=== PATIENT | female | born 1950 | race African-American/Black ===

== ENCOUNTER 2016-11-19 11:42 | Emergency (ER) | payer OTHER ==
[~2016-11-19] VITALS: Ht 160 cm; Wt 50.0 kg
[~2016-11-19 11:42] MED LIST: ASPIRIN EC325 MG PO; CELEXA10 MG PO; CITALOPRAM HBR10 MG PO; FERROUS SULFAT325 MG PO; Feosol PO; PANTOPRAZOLE SO40 MG PO; Protonix PO
[2016-11-19 11:47] VITALS: BP 139/86
[2016-11-19 12:54] LABS: MCH 24.5 PG (29.0-34.0); MCHC 30.9 G/DL (30.0-36.0); MCV 79.1 FL (83-99); MEAN PLAT.VOLUME 9.7 uM^3 (9.5-12.4); PLATELET COUNT 266 K/uL (156-360); RBC DIS.WIDTH-SD 54.9 % (39-53); RED BLOOD COUNT 4.17 M/uL (3.80-5.20); WHITE BLOOD COUNT 5.6 K/uL (4.1-10.2)
[2016-11-19 13:03] LABS: INFLUENZA A VIRAL ANTIGEN NEGATIVE; INFLUENZA B VIRAL ANTIGEN NEGATIVE
[2016-11-19 13:15] LABS: CHLORIDE 108 mEq/L (99-109); POTASSIUM 3.8 mEq/L (3.7-5.4); SODIUM 142 mEq/L (136-147)
[2016-11-19 13:17] LABS: GLUCOSE 139 mg/dL (70-99)
[2016-11-19 13:18] LABS: ANION GAP 12 MEQ/L (2-14)
[2016-11-19 13:21] LABS: GFR ESTIMATE (CALCULATED) > 59 mL/min/
[2016-11-19 13:22] LABS: UREA NITROGEN (BUN) 13 mg/dL (9-23)
[2016-11-19 13:57] LABS: DELETE MACHINE DIFF? YES
[2016-11-19 13:58] LABS: ABS NEUTROPHIL COUNT 3.72; ANISOCYTOSIS 2+; EOSINOPHIL ABS CT 0.11; HELMET CELLS OCC; HYPOCHROMASIA 2+; MACROCYTES 1+; MICROCYTOSIS OCC; OVALOCYTES OCC; PLAT.SUFFICIENCY ADEQUATE; TEAR DROP CELLS OCC; USER ID TLW
[2016-11-19] MEDS ORDERED: ZITHROMAX Z-PA250 MG PO (14:08)
[2016-11-19] MEDS ORDERED: PROAIR HFA8.5 GM IH (14:08)
== END 2016-11-19 14:45 | disposition home or self-care (01) ==
LOC: EME 11:42
PROVIDERS: Emergency Medicine
DX: J20.9 Acute bronchitis, unspecified (principal); R06.2 Wheezing; Z87.891 Personal history of nicotine dependence
CPT/HCPCS: 71020; 80048; 85025; 87502; 87651 90; 94640; 99281; 99284

== ENCOUNTER 2017-06-01 18:33 | Emergency (ER) | payer OTHER ==
[~2017-06-01] VITALS: Ht 170.2 cm; Wt 51.9 kg
[~2017-06-01 18:33] MED LIST changes: +PROAIR HFA8.5 GM IH; +ZITHROMAX Z-PA250 MG PO
[2017-06-01 18:44] VITALS: BP 168/90
[2017-06-01 19:46] LABS: HEMATOCRIT 32.4 % (36.0-46.0); MCH 21.4 PG (29.0-34.0); MCHC 28.7 G/DL (30.0-36.0); MCV 74.7 FL (83-99); MEAN PLAT.VOLUME 9.5 uM^3 (9.5-12.4); PLATELET COUNT 276 K/uL (156-360); RBC DIS.WIDTH-CV 18.5 % (11.8-14.6); RBC DIS.WIDTH-SD 49.2 % (39-53); RED BLOOD COUNT 4.34 M/uL (3.80-5.20); WHITE BLOOD COUNT 5.4 K/uL (4.1-10.2)
[2017-06-01 19:50] LABS: CHLORIDE 105 mEq/L (99-109); POTASSIUM 4.1 mEq/L (3.7-5.4); SODIUM 138 mEq/L (136-147)
[2017-06-01 19:53] LABS: GLUCOSE 88 mg/dL (70-99)
[2017-06-01 19:54] LABS: ANION GAP 7 MEQ/L (2-14)
[2017-06-01 19:55] LABS: TOTAL BILIRUBIN 0.4 mg/dL (0.0-1.0)
[2017-06-01 19:56] LABS: ALKALINE PHOSPHATASE 61 IU/L (3-129); GFR ESTIMATE (CALCULATED) > 59 mL/min/
[2017-06-01 19:57] LABS: UREA NITROGEN (BUN) 15 mg/dL (9-23)
[2017-06-01 20:27] LABS: ADD MIUA? YES; BILIRUBIN NEGATIVE; BLOOD SMALL; COLOR YELLOW ((YELLOW)); GLUCOSE (STRIP) NEGATIVE; KETONES NEGATIVE; LEUKOCYTES TRACE; NITRITE NEGATIVE; PROTEIN (STRIP) NEGATIVE; UROBILINOGEN 0.2 MG/DL (0.2-1.0)
[2017-06-01 20:37] LABS: BACTERIA RARE /HPF; EPITHELIAL CELLS RARE /HPF; MUCUS TRACE /LPF; RED BLOOD CELLS 0-5 /HPF (0-5); UCUL ADDED? YES
[2017-06-01] MEDS ORDERED: CIPRO500 MG PO (20:45)
== END 2017-06-01 21:03 | disposition home or self-care (01) ==
LOC: EME 18:33
DX: N39.0 Urinary tract infection, site not specified (principal); R32 Unspecified urinary incontinence; D64.9 Anemia, unspecified; F32.9 Major depressive disorder, single episode, unspecified; B19.20 Unspecified viral hepatitis C without hepatic coma; F19.10 Other psychoactive substance abuse, uncomplicated; F10.10 Alcohol abuse, uncomplicated; Z87.442 Personal history of urinary calculi; Z87.891 Personal history of nicotine dependence
CPT/HCPCS: 80053; 81003; 85027; 87077; 87086; 87186; 99281; 99285

== ENCOUNTER 2017-08-18 09:25 | Inpatient (IN) | payer OTHER ==
[~2017-08-18] VITALS: Ht 165.1 cm; Wt 50.6 kg
[~2017-08-18 09:25] MED LIST changes: +CIPRO500 MG PO
[2017-08-18 10:15] LABS: HEMATOCRIT 27.4 % (36.0-46.0); MCH 20.6 PG (29.0-34.0); MCHC 28.5 G/DL (30.0-36.0); MCV 72.5 FL (83-99); MEAN PLAT.VOLUME 9.9 uM^3 (9.5-12.4); NRBC (%) 0.6 /100 WBC (0-0); PLATELET COUNT 260 K/uL (156-360); RBC DIS.WIDTH-CV 18.8 % (11.8-14.6); RBC DIS.WIDTH-SD 48.9 % (39-53); RED BLOOD COUNT 3.78 M/uL (3.80-5.20); WHITE BLOOD COUNT 12.4 K/uL (4.1-10.2)
[2017-08-18 10:22] LABS: CHLORIDE 109 mEq/L (99-109); POTASSIUM 3.5 mEq/L (3.7-5.4); SODIUM 140 mEq/L (136-147)
[2017-08-18 10:24] LABS: GLUCOSE 122 mg/dL (70-99)
[2017-08-18 10:26] LABS: ANION GAP 11 MEQ/L (2-14)
[2017-08-18 10:28] LABS: GFR ESTIMATE (CALCULATED) > 59 mL/min/
[2017-08-18 10:29] LABS: UREA NITROGEN (BUN) 11 mg/dL (9-23)
[2017-08-18 10:54] LABS: TROP-I INTERPRETATION NEGATIVE; TROPONIN-I < 0.01 ng/mL (0.0-0.30)
[2017-08-18 11:02] LABS: ABS NEUTROPHIL COUNT 11.9; BAND NEUTROPHILS 9.5 % (0-8.0); EOSINOPHIL ABS CT 0; INSTRUMENT ABS NEUTROPHIL CT 11.7 K/uL; LYMPHOCYTES 3.5 % (15.0-45.0); NUCLEATED RBC'S 0.9; SEG.NEUTROPHILS 86.1 % (46.0-76.0); SMUDGE CELLS 2.6
[2017-08-18 12:17] LABS: ADD MIUA? YES; BILIRUBIN NEGATIVE; BLOOD NEGATIVE; COLOR STRAW ((YELLOW)); GLUCOSE (STRIP) NEGATIVE; KETONES NEGATIVE; LEUKOCYTES SMALL; NITRITE NEGATIVE; PROTEIN (STRIP) NEGATIVE; SPECIFIC GRAVITY 1.003 (1.000-1.030); UROBILINOGEN 0.2 MG/DL (0.2-1.0)
[2017-08-18 12:23] LABS: BACTERIA 1+ /HPF; EPITHELIAL CELLS NONE SEEN /HPF; MUCUS NONE SEEN /LPF; RED BLOOD CELLS 0-5 /HPF (0-5); UCUL ADDED? YES
[2017-08-18 15:53] VITALS: BP 93/55
[2017-08-18 16:15] VITALS: BP 93/55
[2017-08-18 19:26] VITALS: BP 119/76
[2017-08-18 23:43] VITALS: BP 118/74
[2017-08-19 03:43] VITALS: BP 116/73
[2017-08-19 06:30] LABS: HEMATOCRIT 24.4 % (36.0-46.0); MCH 20.8 PG (29.0-34.0); MCHC 29.1 G/DL (30.0-36.0); MCV 71.3 FL (83-99); MEAN PLAT.VOLUME 10.1 uM^3 (9.5-12.4); PLATELET COUNT 193 K/uL (156-360); RBC DIS.WIDTH-CV 18.9 % (11.8-14.6); RBC DIS.WIDTH-SD 48.6 % (39-53); RED BLOOD COUNT 3.42 M/uL (3.80-5.20); WHITE BLOOD COUNT 21.4 K/uL (4.1-10.2)
[2017-08-19 06:44] LABS: ANION GAP 10 MEQ/L (2-14); CHLORIDE 114 MEQ/L (99-109); GFR ESTIMATE (CALCULATED) > 59 mL/min/; POTASSIUM 3.9 MEQ/L (3.7-5.4); SAMPLE HEMOLYSIS CHECK 0; SAMPLE ICTERIC CHECK 0; SAMPLE LIPEMIA CHECK 0; SODIUM 147 MEQ/L (136-147); UREA NITROGEN (BUN) 10 mg/dL (9-23)
[2017-08-19 06:48] LABS: GLUCOSE 73 mg/dL (70-99)
[2017-08-19 07:50] VITALS: BP 152/79
[2017-08-19 12:00] VITALS: BP 140/78
[2017-08-19 13:51] LABS: HEMATOCRIT 25.2 % (36.0-46.0); MCH 20.9 PG (29.0-34.0); MCHC 29.8 G/DL (30.0-36.0); MCV 70.4 FL (83-99); MEAN PLAT.VOLUME 9.8 uM^3 (9.5-12.4); PLATELET COUNT 214 K/uL (156-360); RBC DIS.WIDTH-CV 18.7 % (11.8-14.6); RED BLOOD COUNT 3.58 M/uL (3.80-5.20); WHITE BLOOD COUNT 22.9 K/uL (4.1-10.2)
[2017-08-19 14:26] LABS: ABS NEUTROPHIL COUNT 21.9; ANISOCYTOSIS 1+; BAND NEUTROPHILS 4.8 % (0-8.0); EOSINOPHIL ABS CT 0; HYPOCHROMASIA 1+; LYMPHOCYTES 2.6 % (15.0-45.0); MICROCYTOSIS 1+; NUCLEATED RBC'S 0.4; OVALOCYTES 1+; PLAT.SUFFICIENCY ADEQUATE; POIKILOCYTOSIS 2+; SEG.NEUTROPHILS 90.8 % (46.0-76.0); SMUDGE CELLS 0.4
[2017-08-19 16:04] VITALS: BP 147/81
[2017-08-19 19:36] VITALS: BP 121/75
[2017-08-19 23:40] VITALS: BP 155/8; BP 155/85
[2017-08-20 03:50] VITALS: BP 158/85
[2017-08-20 06:22] LABS: HEMATOCRIT 27.9 % (36.0-46.0); MCH 20.1 PG (29.0-34.0); MCHC 28.7 G/DL (30.0-36.0); MCV 70.1 FL (83-99); MEAN PLAT.VOLUME 9.9 uM^3 (9.5-12.4); PLATELET COUNT 199 K/uL (156-360); RBC DIS.WIDTH-CV 18.6 % (11.8-14.6); RBC DIS.WIDTH-SD 46.6 % (39-53); RED BLOOD COUNT 3.98 M/uL (3.80-5.20); WHITE BLOOD COUNT 18.7 K/uL (4.1-10.2)
[2017-08-20 06:40] LABS: ANION GAP 11 MEQ/L (2-14); CHLORIDE 108 MEQ/L (99-109); GFR ESTIMATE (CALCULATED) > 59 mL/min/; GLUCOSE 75 mg/dL (70-99); POTASSIUM 3.9 MEQ/L (3.7-5.4); SAMPLE HEMOLYSIS CHECK 0; SAMPLE ICTERIC CHECK 0; SAMPLE LIPEMIA CHECK 0; SODIUM 142 MEQ/L (136-147); UREA NITROGEN (BUN) 10 mg/dL (9-23)
[2017-08-20 06:55] LABS: EOSINOPHIL (%) 0.3 % (0-5); EOSINOPHIL COUNT 0.1 K/uL (0-0.3); IMMATURE GRANULOCYTE (%) 3.2 % (0.0-0.7); IMMATURE GRANULOCYTE COUNT 0.6 K/uL; INSTRUMENT ABS NEUTROPHIL CT 15.7 K/uL; LYMPHOCYTE COUNT 1.2 K/uL (1.0-2.8); MONOCYTE (%) 5.7 % (3-12); MONOCYTE COUNT 1.1 K/uL (0-0.8); NEUTROPHIL (%) 84.2 % (45-76); NEUTROPHIL COUNT 15.7 K/uL (1.8-6.4); PLAT.SUFFICIENCY ADEQUATE
[2017-08-20 07:42] VITALS: BP 158/84
[2017-08-20] MEDS ORDERED: ONE DAILY1 EAC3 PO (12:05)
[2017-08-20 12:06] VITALS: BP 132/93
[2017-08-20] MEDS ORDERED: FEOSOL325 MG PO (12:06)
[2017-08-20 17:34] VITALS: BP 136/87
[2017-08-20 19:34] VITALS: BP 120/77
[2017-08-20 23:45] VITALS: BP 128/73
[2017-08-21 04:23] VITALS: BP 126/72
[2017-08-21 06:17] LABS: EOSINOPHIL (%) 0.8 % (0-5); EOSINOPHIL COUNT 0.1 K/uL (0-0.3); HEMATOCRIT 28.5 % (36.0-46.0); IMMATURE GRANULOCYTE (%) 1.1 % (0.0-0.7); IMMATURE GRANULOCYTE COUNT 0.1 K/uL; INSTRUMENT ABS NEUTROPHIL CT 10.5 K/uL; LYMPHOCYTE COUNT 1.1 K/uL (1.0-2.8); MCH 19.8 PG (29.0-34.0); MCHC 28.4 G/DL (30.0-36.0); MCV 69.5 FL (83-99); MEAN PLAT.VOLUME 10.3 uM^3 (9.5-12.4); MONOCYTE (%) 8.5 % (3-12); MONOCYTE COUNT 1.1 K/uL (0-0.8); NEUTROPHIL (%) 80.6 % (45-76); NEUTROPHIL COUNT 10.5 K/uL (1.8-6.4); PLATELET COUNT 217 K/uL (156-360); RBC DIS.WIDTH-CV 18.7 % (11.8-14.6); RBC DIS.WIDTH-SD 46.2 % (39-53); WHITE BLOOD COUNT 13.1 K/uL (4.1-10.2)
[2017-08-21 06:21] LABS: ANION GAP 10 MEQ/L (2-14); CHLORIDE 109 MEQ/L (99-109); GFR ESTIMATE (CALCULATED) > 59 mL/min/; GLUCOSE 86 mg/dL (70-99); POTASSIUM 3.9 MEQ/L (3.7-5.4); SAMPLE HEMOLYSIS CHECK 0; SAMPLE ICTERIC CHECK 0; SAMPLE LIPEMIA CHECK 0; SODIUM 143 MEQ/L (136-147); UREA NITROGEN (BUN) 12 mg/dL (9-23)
[2017-08-21 07:34] VITALS: BP 148/83
[2017-08-21] MEDS ORDERED: CEFDINIR300 MG PO (11:01)
[2017-08-21] MEDS ORDERED: COLACE100 MG PO (11:06)
[2017-08-21] MEDS ORDERED: FERROUS SULFAT325 MG PO (11:06)
== END 2017-08-21 15:41 | DRG 872 ==
LOC: EME → EDBD 09:25 → EME 09:25 → EDOF 12:47 → 5SOUTH 12:47 → ENRESERV 12:56 → 5SOUTH 15:17 → ENPENDDIS 08-21 15:30 → 5SOUTH 08-21 15:41
PROVIDERS: Emergency Medicine; Internal Medicine; Student in an Organized Health Care Education/Training Program
DX: A41.51 Sepsis due to Escherichia coli [E. coli] (principal); N39.0 Urinary tract infection, site not specified; E87.2 Acidosis; E86.0 Dehydration; E87.6 Hypokalemia; F03.90 Unspecified dementia, unspecified severity, without behavioral disturbance, psychotic disturbance, mood disturbance, and anxiety; D50.9 Iron deficiency anemia, unspecified; M48.00 Spinal stenosis, site unspecified; R19.7 Diarrhea, unspecified; B19.20 Unspecified viral hepatitis C without hepatic coma; F32.9 Major depressive disorder, single episode, unspecified; Z68.1 Body mass index [BMI] 19.9 or less, adult; Z87.891 Personal history of nicotine dependence
CPT/HCPCS: 70450; 71020; 80048; 80306 90; 81003; 83605; 84484; 85025; 85027; 87040; 87077; 87086; 87186; 87493; 87801; 92610 GN; 93005; 94799; 97530 GP; 99281; 99285; J0456; J0696; J1650; J7050; J7120

== ENCOUNTER 2017-12-02 18:52 | Inpatient (IN) | payer OTHER ==
[~2017-12-02] VITALS: Ht 172.7 cm; Wt 55.0 kg
[~2017-12-02 18:52] MED LIST changes: +CEFDINIR300 MG PO; +COLACE100 MG PO; +FEOSOL325 MG PO; +ONE DAILY1 EAC3 PO
[2017-12-02 19:45] LABS: HEMATOCRIT 37.9 % (36.0-46.0); HEMOGLOBIN 12.4 G/DL (11.9-15.5); MCH 28.3 PG (29.0-34.0); MCHC 32.7 G/DL (30.0-36.0); MCV 86.5 FL (83-99); PLATELET COUNT 208 K/uL (156-360); RBC DIS.WIDTH-CV 15.1 % (11.8-14.6); RBC DIS.WIDTH-SD 46.8 % (39-53); RED BLOOD COUNT 4.38 M/uL (3.80-5.20); WHITE BLOOD COUNT 6.9 K/uL (4.1-10.2)
[2017-12-02 19:58] LABS: CHLORIDE 106 mEq/L (99-109); POTASSIUM 3.7 mEq/L (3.7-5.4); SODIUM 142 mEq/L (136-147)
[2017-12-02 19:59] LABS: COMMENTS - BLOOD GASES C+; DEVICE VENT; FI02 100 %; MECHANICAL RATE 12 resp/min; MODE AC; PCO2 66 mm Hg (35-45); PEEP 5 CM/H20; PO2 469 mm Hg (80-100); SITE RB; TIDAL VOLUME 300 ML; TOTAL RESP RATE 12 resp/min
[2017-12-02 20:00] LABS: BASE EXCESS -0.5 mEq/L (-3 to +3); BICARBONATE 32.5 mEq/L (22-26); CARBOXY HGB 1.6 % (0-5); METHEMOGLOBIN 1.1 % (0-1.5)
[2017-12-02 20:00] LABS: GLUCOSE 126 mg/dL (70-99)
[2017-12-02 20:04] LABS: CREATININE 0.7 mg/dL (0.6-1.3); GFR ESTIMATE (CALCULATED) > 59 mL/min/
[2017-12-02 20:05] LABS: UREA NITROGEN (BUN) 13 mg/dL (9-23)
[2017-12-02 20:12] LABS: TROP-I INTERPRETATION NEGATIVE; TROPONIN-I 0.02 ng/mL (0.0-0.30)
[2017-12-02 20:13] LABS: APPEARANCE SL.HAZY ((CLEAR)); BILIRUBIN NEGATIVE; BLOOD NEGATIVE; COLOR YELLOW ((YELLOW)); GLUCOSE (STRIP) 50; KETONES NEGATIVE; LEUKOCYTES NEGATIVE; NITRITE NEGATIVE; PROTEIN (STRIP) 30; SPECIFIC GRAVITY 1.008 (1.000-1.030); UROBILINOGEN 0.2 MG/DL (0.2-1.0)
[2017-12-02] MEDS ORDERED: IRON325 M1 PO (20:25)
[2017-12-02] MEDS ORDERED: CRANBERRY 4001 EAC1 PO (20:26)
[2017-12-02 20:27] LABS: BACTERIA 2+ /HPF; EPITHELIAL CELLS 1+ /HPF; MUCUS NONE SEEN /LPF; RED BLOOD CELLS 0-5 /HPF (0-5); UCUL ADDED? YES; WHITE BLOOD CELLS 0-5 /HPF (0-5)
[2017-12-02 21:28] LABS: ALBUMIN 4.3 g/dL (3.2-4.8)
[2017-12-02 21:31] LABS: TOTAL PROTEIN 7.5 g/dL (6.4-8.3)
[2017-12-02 21:33] LABS: TOTAL BILIRUBIN 0.4 mg/dL (0.0-1.0)
[2017-12-02 21:34] LABS: ALKALINE PHOSPHATASE 59 IU/L (3-129)
[2017-12-02 21:36] LABS: AST (GOT) 18 IU/L (2-34); DIRECT BILIRUBIN 0.2 mg/dL (0.0-0.3)
[2017-12-02 21:37] LABS: ALT (GPT) 17 IU/L (3-49)
[2017-12-02 21:38] LABS: INTER. NORMALIZED RATIO 1.1
[2017-12-02 21:41] LABS: PTT 25.8 SEC (25-37)
[2017-12-02 21:58] VITALS: BP 170/122
[2017-12-02 22:24] LABS: TRIGLYCERIDES 83 MG/DL (Normal: <150)
[2017-12-02 23:00] VITALS: BP 170/122
[2017-12-02 23:39] LABS: BASE EXCESS 3.4 mEq/L (-3 to +3); BICARBONATE 28.5 mEq/L (22-26); CARBOXY HGB 1.9 % (0-5); METHEMOGLOBIN 1.5 % (0-1.5)
[2017-12-02 23:40] LABS: COMMENTS - BLOOD GASES C; DEVICE VENT; FI02 40 %; MECHANICAL RATE 16 resp/min; MODE AC; PCO2 44 mm Hg (35-45); PEEP 5 CM/H20; PO2 161 mm Hg (80-100); SITE LB; TIDAL VOLUME 300 ML; TOTAL RESP RATE 16 resp/min; pH 7.42 (7.35-7.45)
[2017-12-03] VITALS (25 sets, daily range): BP systolic 94–160; BP diastolic 68–112
[2017-12-03 05:45] LABS: HEMATOCRIT 40.6 % (36.0-46.0); HEMOGLOBIN 12.8 G/DL (11.9-15.5); MCH 27.1 PG (29.0-34.0); MCHC 31.5 G/DL (30.0-36.0); PLATELET COUNT 261 K/uL (156-360); RBC DIS.WIDTH-CV 15.3 % (11.8-14.6); RBC DIS.WIDTH-SD 46.9 % (39-53); RED BLOOD COUNT 4.72 M/uL (3.80-5.20); WHITE BLOOD COUNT 9.1 K/uL (4.1-10.2)
[2017-12-03 06:02] LABS: BASE EXCESS 2.2 mEq/L (-3 to +3); BICARBONATE 27.8 mEq/L (22-26); CARBOXY HGB 1.9 % (0-5); DEVICE VENT; FI02 40 %; MECHANICAL RATE 16 resp/min; METHEMOGLOBIN 1.7 % (0-1.5); MODE AC; PCO2 46 mm Hg (35-45); PEEP 5 CM/H20; PO2 184 mm Hg (80-100); SITE RFEM; TIDAL VOLUME 300 ML; TOTAL RESP RATE 16 resp/min; pH 7.39 (7.35-7.45)
[2017-12-03 06:19] LABS: CHLORIDE 99 MEQ/L (99-109); CREATININE 0.8 MG/DL (0.6-1.3); GFR ESTIMATE (CALCULATED) > 59 mL/min/; GLUCOSE 106 mg/dL (70-99); SODIUM 138 MEQ/L (136-147); UREA NITROGEN (BUN) 13 mg/dL (9-23)
[2017-12-03 09:29] LABS: BENZODIAZEPINES, URINE SCREEN POSITIVE (200 ng/mL)
[2017-12-04] VITALS (17 sets, daily range): BP systolic 117–160; BP diastolic 78–118
[2017-12-05] VITALS (23 sets, daily range): BP systolic 130–153; BP diastolic 81–96
[2017-12-06] VITALS (24 sets, daily range): BP systolic 72–168; BP diastolic 38–94
[2017-12-07] VITALS (20 sets, daily range): BP systolic 128–195; BP diastolic 61–118
[2017-12-07 05:16] LABS: BASE EXCESS 5.9 mEq/L (-3 to +3); BICARBONATE 30.6 mEq/L (22-26); CARBOXY HGB 1.5 % (0-5); COMMENTS - BLOOD GASES C+A+; DEVICE VENTILATOR; FI02 30 %; METHEMOGLOBIN 1.6 % (0-1.5); MODE SPONT; PCO2 44 mm Hg (35-45); PO2 127 mm Hg (80-100); SITE RR; TOTAL RESP RATE 16 resp/min; pH 7.45 (7.35-7.45)
[2017-12-07 05:17] LABS: PEEP 5 CM/H20; PRES. SUPPORT 8 CM/H2O
[2017-12-07 06:50] LABS: BASOPHIL (%) 0.5 % (0-1); EOSINOPHIL (%) 2.2 % (0-5); EOSINOPHIL COUNT 0.1 K/uL (0-0.3); HEMATOCRIT 33.7 % (36.0-46.0); IMMATURE GRANULOCYTE (%) 0.3 % (0.0-0.7); LYMPHOCYTE COUNT 1.3 K/uL (1.0-2.8); MCH 28.2 PG (29.0-34.0); MCHC 31.8 G/DL (30.0-36.0); MCV 88.7 FL (83-99); MONOCYTE (%) 12.3 % (3-12); MONOCYTE COUNT 0.7 K/uL (0-0.8); NEUTROPHIL (%) 62.7 % (45-76); NEUTROPHIL COUNT 3.7 K/uL (1.8-6.4); PLATELET COUNT 184 K/uL (156-360); RBC DIS.WIDTH-CV 14.8 % (11.8-14.6); RBC DIS.WIDTH-SD 46.3 % (39-53)
[2017-12-07 06:51] LABS: HEMOGLOBIN 10.7 G/DL (11.9-15.5)
[2017-12-07 07:01] LABS: CHLORIDE 106 MEQ/L (99-109); CREATININE 0.6 MG/DL (0.6-1.3); GFR ESTIMATE (CALCULATED) > 59 mL/min/; GLUCOSE 116 mg/dL (70-99); SODIUM 139 MEQ/L (136-147); UREA NITROGEN (BUN) 11 mg/dL (9-23)
[2017-12-08] VITALS (15 sets, daily range): BP systolic 127–169; BP diastolic 76–104
[2017-12-09 06:45] VITALS: BP 124/71
[2017-12-09 08:56] LABS: HEMATOCRIT 35.6 % (36.0-46.0); HEMOGLOBIN 11.4 G/DL (11.9-15.5); MCH 27.3 PG (29.0-34.0); MCV 85.2 FL (83-99); PLATELET COUNT 226 K/uL (156-360); RBC DIS.WIDTH-CV 14.8 % (11.8-14.6); RBC DIS.WIDTH-SD 45.6 % (39-53); RED BLOOD COUNT 4.18 M/uL (3.80-5.20); WHITE BLOOD COUNT 5.7 K/uL (4.1-10.2)
[2017-12-09 09:54] LABS: CHLORIDE 100 MEQ/L (99-109); CREATININE 0.6 MG/DL (0.6-1.3); GFR ESTIMATE (CALCULATED) > 59 mL/min/; GLUCOSE 139 mg/dL (70-99); POTASSIUM 3.9 MEQ/L (3.7-5.4); SODIUM 136 MEQ/L (136-147); UREA NITROGEN (BUN) 17 mg/dL (9-23)
[2017-12-09 15:30] VITALS: BP 117/71
[2017-12-09 23:38] VITALS: BP 156/84
[2017-12-10 05:55] LABS: BASOPHIL (%) 0.6 % (0-1); EOSINOPHIL (%) 2.4 % (0-5); EOSINOPHIL COUNT 0.1 K/uL (0-0.3); HEMATOCRIT 34.9 % (36.0-46.0); HEMOGLOBIN 11.2 G/DL (11.9-15.5); IMMATURE GRANULOCYTE (%) 0.6 % (0.0-0.7); LYMPHOCYTE (%) 27.7 % (15-42); LYMPHOCYTE COUNT 1.4 K/uL (1.0-2.8); MCH 27.5 PG (29.0-34.0); MCHC 32.1 G/DL (30.0-36.0); MCV 85.5 FL (83-99); MONOCYTE COUNT 0.6 K/uL (0-0.8); NEUTROPHIL (%) 57.7 % (45-76); NEUTROPHIL COUNT 2.9 K/uL (1.8-6.4); PLATELET COUNT 234 K/uL (156-360); RBC DIS.WIDTH-CV 14.7 % (11.8-14.6); RBC DIS.WIDTH-SD 45.1 % (39-53); RED BLOOD COUNT 4.08 M/uL (3.80-5.20)
[2017-12-10 06:23] LABS: CHLORIDE 105 MEQ/L (99-109); CREATININE 0.6 MG/DL (0.6-1.3); GFR ESTIMATE (CALCULATED) > 59 mL/min/; POTASSIUM 4.3 MEQ/L (3.7-5.4); SODIUM 140 MEQ/L (136-147); UREA NITROGEN (BUN) 15 mg/dL (9-23)
[2017-12-10 06:31] LABS: GLUCOSE 94 mg/dL (70-99)
[2017-12-10 07:00] VITALS: BP 124/83
[2017-12-10 11:00] VITALS: BP 140/88
[2017-12-10] MEDS ORDERED: ATORVASTATIN CA40 MG PO (12:21)
[2017-12-10] MEDS ORDERED: LOPRESSOR25 MG GT (12:21)
[2017-12-10] MEDS ORDERED: ASPIR-LOW81 MG PO (12:21)
[2017-12-10] MEDS ORDERED: [UNRECOGNIZED DRUG - OTHER] GT (12:23)
[2017-12-10] MEDS ORDERED: KEPPRA750 MG PO (12:23)
[2017-12-10] MEDS ORDERED: FOLIC ACID1 MG GT (12:23)
[2017-12-10] MEDS ORDERED: Thiamine,Vitamin B1 GT (12:23)
[2017-12-10] MEDS ORDERED: PEPCID20 MG PO (12:31)
[2017-12-10 15:00] VITALS: BP 132/86
== END 2017-12-10 15:35 | DRG 208 ==
LOC: EME → EDBD 18:52 → EME 18:52 → 4WEST 21:02 → EDOF 21:02 → ENRESERV 21:04 → 4WEST 22:00 → ENRESERV 12-08 → 4WEST 12-08 14:39 → ENRESERV 12-08 14:45 → 5EAST 12-08 16:28 → ENPENDDIS 12-10 15:00 → 5EAST 12-10 15:35
PROVIDERS: Emergency Medicine; Internal Medicine; Surgery
PROC: 0BH17EZ Insertion of Endotracheal Airway into Trachea, Via Natural or Artificial Opening (ICD-10-PCS; principal; 2017-12-02)
PROC: 5A1945Z Respiratory Ventilation, 24-96 Consecutive Hours (ICD-10-PCS; principal; 2017-12-02)
DX: J96.01 Acute respiratory failure with hypoxia (principal); R56.9 Unspecified convulsions; B19.20 Unspecified viral hepatitis C without hepatic coma; I69.351 Hemiplegia and hemiparesis following cerebral infarction affecting right dominant side; D63.8 Anemia in other chronic diseases classified elsewhere; F03.90 Unspecified dementia, unspecified severity, without behavioral disturbance, psychotic disturbance, mood disturbance, and anxiety; E87.2 Acidosis; G93.40 Encephalopathy, unspecified; I10 Essential (primary) hypertension; R47.02 Dysphasia; Z87.891 Personal history of nicotine dependence; K74.60 Unspecified cirrhosis of liver; Z90.710 Acquired absence of both cervix and uterus
CPT/HCPCS: 36600; 70450; 70496; 70498; 70551; 71045; 74230; 80047; 80048; 80076; 80306 90; 81003; 82140; 82803; 83605; 84478; 84484; 85025; 85027; 85610; 85730; 87070; 87086; 87205; 87641; 90686; 92523 GN; 92526 GN; 92610 GN; 92611 GN; 94002; 94003; 94640; 94640 76; 94799; 95813; 95819; 97530 GP; 99202; 99281; 99285; J0360; J1644; J1953; J2060; J2250; J2704; J3411; J3475; J7030; J7050; J7120; S0028

== ENCOUNTER 2018-01-29 20:35 | Emergency (ER) | payer OTHER ==
[~2018-01-29] VITALS: Ht 165.1 cm; Wt 46.8 kg
[~2018-01-29 20:35] MED LIST changes: +ASPIR-LOW81 MG PO; +ATORVASTATIN CA40 MG PO; +CRANBERRY 4001 EAC1 PO; +FOLIC ACID1 MG GT; +IRON325 M1 PO; +KEPPRA750 MG PO; +LOPRESSOR25 MG GT; +PEPCID20 MG PO; +Thiamine,Vitamin B1 GT; +[UNRECOGNIZED DRUG - OTHER] GT
[2018-01-29 21:35] LABS: HEMATOCRIT 38.6 % (36.0-46.0); HEMOGLOBIN 12.7 G/DL (11.9-15.5); MCHC 32.9 G/DL (30.0-36.0); PLATELET COUNT 205 K/uL (156-360); RBC DIS.WIDTH-CV 16.1 % (11.8-14.6); RBC DIS.WIDTH-SD 54.2 % (39-53); RED BLOOD COUNT 4.24 M/uL (3.80-5.20); WHITE BLOOD COUNT 5.5 K/uL (4.1-10.2)
[2018-01-29 21:41] LABS: ALBUMIN 4.3 g/dL (3.2-4.8); CHLORIDE 105 mEq/L (99-109); SODIUM 142 mEq/L (136-147)
[2018-01-29 21:44] LABS: GLUCOSE 95 mg/dL (70-99); TOTAL PROTEIN 7.7 g/dL (6.4-8.3)
[2018-01-29 21:46] LABS: TOTAL BILIRUBIN 0.7 mg/dL (0.0-1.0)
[2018-01-29 21:47] LABS: ALKALINE PHOSPHATASE 95 IU/L (3-129); CREATININE 0.7 mg/dL (0.6-1.3); GFR ESTIMATE (CALCULATED) > 59 mL/min/
[2018-01-29 21:48] LABS: UREA NITROGEN (BUN) 14 mg/dL (9-23)
[2018-01-29 21:49] LABS: AST (GOT) 48 IU/L (2-34)
[2018-01-29 21:50] LABS: ALT (GPT) 49 IU/L (3-49)
[2018-01-29 22:25] LABS: APPEARANCE SL.HAZY ((CLEAR)); BILIRUBIN NEGATIVE; BLOOD NEGATIVE; COLOR YELLOW ((YELLOW)); GLUCOSE (STRIP) NEGATIVE; KETONES NEGATIVE; LEUKOCYTES NEGATIVE; NITRITE NEGATIVE; PROTEIN (STRIP) NEGATIVE
[2018-01-29 23:17] LABS: BACTERIA RARE /HPF; EPITHELIAL CELLS RARE /HPF; HYALINE CASTS 0-5 /LPF; MUCUS TRACE /LPF; RED BLOOD CELLS 0-5 /HPF (0-5); UCUL ADDED? NO; WHITE BLOOD CELLS 0-5 /HPF (0-5)
[2018-01-29 23:55] VITALS: BP 164/98
== END 2018-01-29 23:57 | disposition home or self-care (01) ==
LOC: EME 20:35
PROVIDERS: Nurse Practitioner Family
DX: R82.99 Other abnormal findings in urine (principal); F03.90 Unspecified dementia, unspecified severity, without behavioral disturbance, psychotic disturbance, mood disturbance, and anxiety; D64.9 Anemia, unspecified; B19.20 Unspecified viral hepatitis C without hepatic coma; F32.9 Major depressive disorder, single episode, unspecified; Z87.891 Personal history of nicotine dependence; Z87.442 Personal history of urinary calculi; Z86.73 Personal history of transient ischemic attack (TIA), and cerebral infarction without residual deficits; Z86.69 Personal history of other diseases of the nervous system and sense organs; Z90.49 Acquired absence of other specified parts of digestive tract
CPT/HCPCS: 80053; 81003; 85027; 99281; 99284

== ENCOUNTER 2018-03-20 18:42 | Emergency (ER) | payer OTHER ==
[~2018-03-20] VITALS: Ht 165.1 cm; Wt 51.3 kg
[2018-03-20 20:11] LABS: HEMATOCRIT 39.4 % (36.0-46.0); HEMOGLOBIN 13.1 G/DL (11.9-15.5); MCH 29.4 PG (29.0-34.0); MCHC 33.2 G/DL (30.0-36.0); MCV 88.5 FL (83-99); RBC DIS.WIDTH-CV 14.1 % (11.8-14.6); RBC DIS.WIDTH-SD 45.6 % (39-53); RED BLOOD COUNT 4.45 M/uL (3.80-5.20); WHITE BLOOD COUNT 4.8 K/uL (4.1-10.2)
[2018-03-20 20:18] LABS: ALBUMIN 4.2 g/dL (3.2-4.8); CHLORIDE 105 mEq/L (99-109); POTASSIUM 4.3 mEq/L (3.7-5.4); SODIUM 143 mEq/L (136-147)
[2018-03-20 20:20] LABS: GLUCOSE 86 mg/dL (70-99); TOTAL PROTEIN 7.1 g/dL (6.4-8.3)
[2018-03-20 20:22] LABS: TOTAL BILIRUBIN 0.5 mg/dL (0.0-1.0)
[2018-03-20 20:24] LABS: ALKALINE PHOSPHATASE 83 IU/L (3-129); CREATININE 0.7 mg/dL (0.6-1.3); GFR ESTIMATE (CALCULATED) > 59 mL/min/
[2018-03-20 20:25] LABS: UREA NITROGEN (BUN) 17 mg/dL (9-23)
[2018-03-20 20:26] LABS: AST (GOT) 18 IU/L (2-34)
[2018-03-20 20:27] LABS: ALT (GPT) 19 IU/L (3-49)
[2018-03-20 20:59] LABS: BASOPHIL (%) 0.6 % (0-1); EOSINOPHIL (%) 4.2 % (0-5); EOSINOPHIL COUNT 0.2 K/uL (0-0.3); IMMATURE GRANULOCYTE (%) 0.4 % (0.0-0.7); LYMPHOCYTE (%) 29.1 % (15-42); LYMPHOCYTE COUNT 1.4 K/uL (1.0-2.8); MONOCYTE (%) 12.4 % (3-12); MONOCYTE COUNT 0.6 K/uL (0-0.8); NEUTROPHIL (%) 53.3 % (45-76); NEUTROPHIL COUNT 2.5 K/uL (1.8-6.4); PLAT.SUFFICIENCY ADEQUATE; PLATELET COUNT 187 K/uL (156-360)
[2018-03-20 21:47] LABS: APPEARANCE CLEAR ((CLEAR)); BILIRUBIN NEGATIVE; BLOOD NEGATIVE; COLOR YELLOW ((YELLOW)); GLUCOSE (STRIP) NEGATIVE; KETONES NEGATIVE; LEUKOCYTES NEGATIVE; NITRITE NEGATIVE; PROTEIN (STRIP) NEGATIVE; UCUL ADDED? NO; UROBILINOGEN 0.2 MG/DL (0.2-1.0)
[2018-03-20] MEDS ORDERED: METOPROLOL TART25 MG PO (22:56)
[2018-03-20 23:09] VITALS: BP 157/109
== END 2018-03-20 23:11 | disposition home or self-care (01) ==
LOC: EME 18:42
PROVIDERS: Emergency Medicine
DX: M79.89 Other specified soft tissue disorders (principal); S92.424A Nondisplaced fracture of distal phalanx of right great toe, initial encounter for closed fracture; I73.9 Peripheral vascular disease, unspecified; I10 Essential (primary) hypertension; I74.3 Embolism and thrombosis of arteries of the lower extremities; F03.90 Unspecified dementia, unspecified severity, without behavioral disturbance, psychotic disturbance, mood disturbance, and anxiety; Z86.73 Personal history of transient ischemic attack (TIA), and cerebral infarction without residual deficits; Z87.891 Personal history of nicotine dependence; X58.XXXA Exposure to other specified factors, initial encounter
CPT/HCPCS: 73630; 80053; 81003; 85025; 93971; 99281; 99285

== ENCOUNTER 2018-04-19 10:20 | Emergency (ER) | payer OTHER ==
[~2018-04-19] VITALS: Ht 167.6 cm; Wt 51.1 kg
[~2018-04-19 10:20] MED LIST changes: +METOPROLOL TART25 MG PO
[2018-04-19 11:18] LABS: BASOPHIL (%) 0.8 % (0-1); EOSINOPHIL (%) 2.2 % (0-5); EOSINOPHIL COUNT 0.1 K/uL (0-0.3); HEMATOCRIT 44.8 % (36.0-46.0); HEMOGLOBIN 14.4 G/DL (11.9-15.5); IMMATURE GRANULOCYTE (%) 0.4 % (0.0-0.7); LYMPHOCYTE (%) 22.9 % (15-42); LYMPHOCYTE COUNT 1.2 K/uL (1.0-2.8); MCH 29.1 PG (29.0-34.0); MCHC 32.1 G/DL (30.0-36.0); MCV 90.7 FL (83-99); MONOCYTE COUNT 0.4 K/uL (0-0.8); NEUTROPHIL (%) 66.7 % (45-76); NEUTROPHIL COUNT 3.4 K/uL (1.8-6.4); PLATELET COUNT 188 K/uL (156-360); RBC DIS.WIDTH-CV 14.6 % (11.8-14.6); RBC DIS.WIDTH-SD 48.2 % (39-53); RED BLOOD COUNT 4.94 M/uL (3.80-5.20); WHITE BLOOD COUNT 5.1 K/uL (4.1-10.2)
[2018-04-19 11:29] LABS: ALBUMIN 4.5 g/dL (3.2-4.8); CHLORIDE 107 mEq/L (99-109); SODIUM 144 mEq/L (136-147)
[2018-04-19 11:31] LABS: GLUCOSE 86 mg/dL (70-99)
[2018-04-19 11:32] LABS: TOTAL PROTEIN 8.2 g/dL (6.4-8.3)
[2018-04-19 11:33] LABS: TOTAL BILIRUBIN 0.6 mg/dL (0.0-1.0)
[2018-04-19 11:35] LABS: ALKALINE PHOSPHATASE 68 IU/L (3-129); CREATININE 0.8 mg/dL (0.6-1.3); GFR ESTIMATE (CALCULATED) > 59 mL/min/
[2018-04-19 11:36] LABS: UREA NITROGEN (BUN) 16 mg/dL (9-23)
[2018-04-19 11:37] LABS: AST (GOT) 20 IU/L (2-34)
[2018-04-19 11:38] LABS: ALT (GPT) 19 IU/L (3-49)
[2018-04-19 11:39] LABS: LIPASE 77 U/L (1.0-51.0); TROP-I INTERPRETATION NEGATIVE; TROPONIN-I < 0.01 ng/mL (0.0-0.30)
[2018-04-19 14:00] LABS: APPEARANCE SL.HAZY ((CLEAR)); BILIRUBIN NEGATIVE; BLOOD NEGATIVE; COLOR YELLOW ((YELLOW)); GLUCOSE (STRIP) NEGATIVE; KETONES NEGATIVE; LEUKOCYTES TRACE; NITRITE POSITIVE; PROTEIN (STRIP) 30; SPECIFIC GRAVITY 1.012 (1.000-1.030); UROBILINOGEN 0.2 MG/DL (0.2-1.0)
[2018-04-19 14:17] LABS: BACTERIA 2+ /HPF; EPITHELIAL CELLS 2+ /HPF; HYALINE CASTS 0-5 /LPF; MUCUS TRACE /LPF; RED BLOOD CELLS 0-5 /HPF (0-5); UCUL ADDED? YES; WHITE BLOOD CELLS 0-5 /HPF (0-5)
[2018-04-19] MEDS ORDERED: ZOFRAN ODT4 MG PO (14:44)
[2018-04-19 15:04] VITALS: BP 171/98
== END 2018-04-19 15:13 | disposition home or self-care (01) ==
LOC: EME 10:20
PROVIDERS: Emergency Medicine
DX: R11.2 Nausea with vomiting, unspecified (principal); R19.7 Diarrhea, unspecified; I10 Essential (primary) hypertension; F03.90 Unspecified dementia, unspecified severity, without behavioral disturbance, psychotic disturbance, mood disturbance, and anxiety; J44.9 Chronic obstructive pulmonary disease, unspecified; B19.20 Unspecified viral hepatitis C without hepatic coma; M81.0 Age-related osteoporosis without current pathological fracture; F32.9 Major depressive disorder, single episode, unspecified; Z86.73 Personal history of transient ischemic attack (TIA), and cerebral infarction without residual deficits; Z87.442 Personal history of urinary calculi; Z87.891 Personal history of nicotine dependence; Z90.710 Acquired absence of both cervix and uterus
CPT/HCPCS: 71045; 74176; 80053; 81003; 83690; 84484; 85025; 87077; 87086; 87186; 93005; J2405; J7040